=== PATIENT | female | born 1980 | race Caucasian/White ===

== ENCOUNTER 2025-01-21 14:08 | Emergency (ER) | payer OTHER ==
[~2025-01-21] VITALS: Ht 157.5 cm; Wt 97.3 kg
[2025-01-21] MEDS ORDERED: PROZ40CA PO (14:16)
[2025-01-21] MEDS ORDERED: LAMI1TAB9 PO (14:16)
[2025-01-21] MEDS ORDERED: ATIV1TAB7 PO (14:17)
[2025-01-21] MEDS ORDERED: TOPR25TA PO (14:17)
[2025-01-21] MEDS ORDERED: LISI40TA4 PO (14:17)
[2025-01-21] MEDS ORDERED: LORA1TAB23 PO (16:10)
[2025-01-21 16:18] VITALS: BP 123/61; TEMP 96.4; O2SAT 96
== END 2025-01-21 16:52 | disposition home or self-care (01) ==
LOC: M ED 14:08
DX: Z76.0 Encounter for issue of repeat prescription (principal); I10 Essential (primary) hypertension; F41.9 Anxiety disorder, unspecified; F17.290 Nicotine dependence, other tobacco product, uncomplicated; Z79.899 Other long term (current) drug therapy